=== PATIENT | male | born 1985 | race African-American/Black ===

== ENCOUNTER 2018-05-09 14:44 | Inpatient (IN) | payer MEDICAID ==
[~2018-05-09] VITALS: Ht 175.3 cm; Wt 75.5 kg
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
[2018-05-09] MEDS ORDERED: COREG12.5 MG PO (14:59)
[2018-05-09 15:00] VITALS: BP 124/88
[2018-05-09 16:00] VITALS: BP 123/81
[2018-05-09 16:44] LABS: BASOPHILS 0 % (0-2); EOSINOPHILS 0.1 % (0-7); HEMATOCRIT 38.7 % (42.0-54.0); HEMOGLOBIN 13.1 g/dL (13.5-17.5); IMMATURE GRANULOCYTES 0.2 % (0-5); LYMPHOCYTES 6.8 % (15-50); MCH 26.1 pg (26.0-34.0); MCHC 33.9 g/dL (31.0-37.0); MCV 77.2 fL (80.0-100.0); MEAN PLATELET VOLUME 10.1 fL (7.4-10.4); MONOCYTES 6.3 % (2-11); NEUTROPHILS 86.6 % (40-80); PLATELET COUNT 241 10x3/uL (130-400); RBC 5.01 10x6/uL (4.20-6.10); RDW 13.7 % (11.5-14.5); WBC 13.5 10x3/uL (4.8-10.8)
[2018-05-09 17:00] VITALS: BP 135/76
[2018-05-09 17:00] LABS: ALBUMIN 3.6 g/dL (3.4-5.0); ALKALINE PHOSPHATASE 51 U/L (46-116); ALT (SGPT) 19 U/L (10-68); CALC OSMOLALITY 280 mosm/kg (275-300); CARBON DIOXIDE 26.3 mmol/L (21.0-32.0); CHLORIDE - SERUM 106 mmol/L (98-107); CREATININE - SERUM 1.1 mg/dL (0.6-1.3); GLUCOSE 121 mg/dL (74-106); POTASSIUM - SERUM 3.6 mmol/L (3.5-5.1); PROTEIN - SERUM 7.1 g/dL (6.4-8.2); SODIUM 140 mmol/L (136-145); UREA NITROGEN 15 mg/dL (7-18); eGFR NON AFRICAN AMERICAN 83 mL/min (90-120)
[2018-05-09 17:07] LABS: INR 1.06 (0.85-1.17); PROTIME 13.4 SECONDS (11.6-15.0)
[2018-05-09 22:06] VITALS: BP 138/79; BMI 24.5
[2018-05-10] VITALS (13 sets, daily range): BP systolic 131–149; BP diastolic 58–108; Ht 175.3 cm; Wt 75.5 kg
[2018-05-10 06:05] LABS: BASOPHILS 0.1 % (0-2); EOSINOPHILS 0.1 % (0-7); HEMATOCRIT 39.5 % (42.0-54.0); HEMOGLOBIN 13.3 g/dL (13.5-17.5); IMMATURE GRANULOCYTES 0.1 % (0-5); LYMPHOCYTES 15.3 % (15-50); MCH 26.3 pg (26.0-34.0); MCHC 33.7 g/dL (31.0-37.0); MCV 78.1 fL (80.0-100.0); MEAN PLATELET VOLUME 9.8 fL (7.4-10.4); MONOCYTES 11.1 % (2-11); NEUTROPHILS 73.3 % (40-80); PLATELET COUNT 259 10x3/uL (130-400); RBC 5.06 10x6/uL (4.20-6.10); RDW 13.9 % (11.5-14.5)
[2018-05-10 06:18] LABS: WBC 8.4 10x3/uL (4.8-10.8)
[2018-05-10 06:31] LABS: ALBUMIN 3.5 g/dL (3.4-5.0); ALKALINE PHOSPHATASE 52 U/L (46-116); ALT (SGPT) 22 U/L (10-68); BILIRUBIN - TOTAL 1.09 mg/dL (0.2-1.3); CALC OSMOLALITY 276 mosm/kg (275-300); CALCIUM 8.7 mg/dL (8.5-10.1); CARBON DIOXIDE 26.8 mmol/L (21.0-32.0); CHLORIDE - SERUM 102 mmol/L (98-107); CREATININE - SERUM 0.9 mg/dL (0.6-1.3); GLUCOSE 125 mg/dL (74-106); POTASSIUM - SERUM 3.9 mmol/L (3.5-5.1); SODIUM 138 mmol/L (136-145); UREA NITROGEN 12 mg/dL (7-18); eGFR NON AFRICAN AMERICAN > 90 mL/min (90-120)
[2018-05-11 00:52] VITALS: BP 139/91
[2018-05-11 04:17] VITALS: BP 131/84
[2018-05-11 06:54] LABS: BASOPHILS 0.1 % (0-2); EOSINOPHILS 0 % (0-7); HEMATOCRIT 37.7 % (42.0-54.0); HEMOGLOBIN 12.6 g/dL (13.5-17.5); IMMATURE GRANULOCYTES 0.3 % (0-5); LYMPHOCYTES 15.4 % (15-50); MCH 26.1 pg (26.0-34.0); MCHC 33.4 g/dL (31.0-37.0); MCV 78.1 fL (80.0-100.0); MEAN PLATELET VOLUME 9.5 fL (7.4-10.4); NEUTROPHILS 70.2 % (40-80); PLATELET COUNT 239 10x3/uL (130-400); RBC 4.83 10x6/uL (4.20-6.10); RDW 13.5 % (11.5-14.5)
[2018-05-11 07:02] LABS: WBC 12.8 10x3/uL (4.8-10.8)
[2018-05-11 07:26] LABS: % SATURATION 9 % (15-55); IRON 22 ug/dl (35-150); TOTAL IRON BIND CAPACITY 233 ug/dl (260-445); UNSAT IRON BIND CAPACITY 211 ug/dl (150-375)
[2018-05-11 07:31] LABS: CALC OSMOLALITY 272 mosm/kg (275-300); CALCIUM 8.7 mg/dL (8.5-10.1); CARBON DIOXIDE 27.8 mmol/L (21.0-32.0); CHLORIDE - SERUM 100 mmol/L (98-107); FERRITIN 105 ng/mL (3-244); GLUCOSE 131 mg/dL (74-106); MAGNESIUM - SERUM 1.7 mg/dL (1.8-2.4); PHOSPHOROUS 3.6 mg/dL (2.5-4.9); PRO BNP 122 pg/mL (0-125); SODIUM 135 mmol/L (136-145); TROPONIN-I < 0.017 ng/mL (0.000-0.060); UREA NITROGEN 15 mg/dL (7-18); eGFR NON AFRICAN AMERICAN > 90 mL/min (90-120)
[2018-05-11 09:09] VITALS: BP 129/79
[2018-05-11 12:31] VITALS: BP 129/87
[2018-05-11 19:34] VITALS: BP 125/61
[2018-05-12 00:58] VITALS: BP 136/70
[2018-05-12 04:05] VITALS: BP 130/72
[2018-05-12 05:52] LABS: HEMATOCRIT 35.2 % (42.0-54.0); HEMOGLOBIN 11.8 g/dL (13.5-17.5)
[2018-05-12] MEDS ORDERED: HYDROCODONE-APA1 TAB PO (08:14)
[2018-05-12 08:25] VITALS: BP 147/92
[2018-05-12] MEDS ORDERED: LEVAQUIN750 MG PO (10:24)
[2018-05-12 13:22] VITALS: BP 138/72
[2018-05-12 16:55] VITALS: BP 124/79
== END 2018-05-12 18:09 | DRG 492 ==
LOC: D.ER 14:44 → D.MS 16:15
PROVIDERS: Family Medicine; Internal Medicine Pulmonary Disease; Orthopaedic Surgery
PROC: 0PSF04Z Reposition Right Humeral Shaft with Internal Fixation Device, Open Approach (ICD-10-PCS; principal; 2018-05-10 12:00)
DX: S42.401A Unspecified fracture of lower end of right humerus, initial encounter for closed fracture (principal); J96.01 Acute respiratory failure with hypoxia; Y09 Assault by unspecified means; Y92.149 Unspecified place in prison as the place of occurrence of the external cause; E11.9 Type 2 diabetes mellitus without complications; I10 Essential (primary) hypertension; J98.6 Disorders of diaphragm; D64.9 Anemia, unspecified